=== PATIENT | female | born 1985 | race Caucasian/White ===

== ENCOUNTER → 2022-08-12 14:10 | Outpatient (BNVA) | payer OTHER, SELFPAY | PROVIDERS: Visit Provider Family Medicine | DX: Z98.84 Bariatric surgery status (principal) | CPT/HCPCS: 80053; 82607; 84134; 84443; 85025 ==

== ENCOUNTER → 2022-10-03 08:16 | Outpatient (BNVA) | payer OTHER, SELFPAY | PROVIDERS: PCP Family Medicine; Visit Provider Clinical Nurse Specialist Adult Health | DX: R53.83 Other fatigue (principal); R68.83 Chills (without fever); Z98.84 Bariatric surgery status | CPT/HCPCS: 80053; 82607; 84436; 84443; 84481 ==

== ENCOUNTER → 2022-11-06 12:27 | Outpatient (BNVA) | payer OTHER, SELFPAY | PROVIDERS: PCP Family Medicine; Visit Provider Family Medicine | DX: E16.2 Hypoglycemia, unspecified (principal); R55 Syncope and collapse | CPT/HCPCS: 80053; 81000; 83036; 83735; 85025 ==

== ENCOUNTER 2023-01-23 09:36 | Outpatient (CLI) | payer OTHER, SELFPAY ==
--- NOTE | 2023-01-23 09:52 | US_ITS ---
WS: [id number] RIGHT UPPER QUADRANT ULTRASOUND HISTORY: ACUTE RUQ PAIN COMPARISON: None available. Liver: 15.0 cm in length. Normal size liver. No bile duct dilatation or mass. Portal Vein: Normal hepatopetal flow with monophasic waveform. Gallbladder: Normally distended gallbladder with no stones or wall thickening. CBD: 0.2 cm Pancreas: Completely obscured by bowel gas. Right kidney: 10.1 cm in length. Normal size and echogenicity. No hydronephrosis or mass. Aorta and IVC: Unremarkable abdominal aorta and IVC. No ascites. US/US gall bladder [id number] IMPRESSION: 1. Normal gallbladder. 2. Pancreas is completely obscured by bowel gas. 3. No bile duct dilatation.
== END 2023-01-23 09:37 | disposition home or self-care (01) ==
PROVIDERS: PCP Family Medicine; Visit Provider Family Medicine
DX: R10.11 Right upper quadrant pain (principal)
CPT/HCPCS: 76705

== ENCOUNTER 2023-03-27 07:04 | Outpatient (CLI) | payer OTHER, SELFPAY ==
[2023-03-27 08:03] LABS: Cortisol Random 13.27 ug/dL (2.47-19.5)
== END 2023-03-27 07:05 | disposition home or self-care (01) ==
LOC: LAB 07:07
PROVIDERS: PCP Family Medicine; Visit Provider Internal Medicine
DX: E16.2 Hypoglycemia, unspecified (principal)
CPT/HCPCS: 36415; 82533

== ENCOUNTER 2023-09-03 13:26 | Outpatient (CLI) | payer OTHER, SELFPAY ==
--- NOTE | 2023-09-03 13:31 | MM_ITS ---
WS: [id number] BILATERAL 3D TOMOSYNTHESIS DIGITAL SCREENING MAMMOGRAPHY WITH CAD CLINICAL INFORMATION: SCREENING HISTORY: Screening mammogram. No current complaints. COMPARISON: Baseline TECHNIQUE: Bilateral CC and MLO views. FINDINGS: The breasts are composed of heterogeneous fibroglandular density tissue, which can limit the detectio n of small underlying mass lesions. No suspicious mass, asymmetry, calcifications, or architectural d istortion. No evidence of malignancy. Incidental punctate calcification RIGHT breast. IMPRESSION: MM/[place] [id number] BI-RADS: 2-Benign FOLLOW UP: 1 Year Follow-up Recommend return to annual screening mammography.
== END 2023-09-03 13:27 | disposition home or self-care (01) ==
PROVIDERS: PCP Family Medicine; Visit Provider Family Medicine
DX: Z12.31 Encounter for screening mammogram for malignant neoplasm of breast (principal)
CPT/HCPCS: 77063; 77067

== ENCOUNTER 2023-09-10 10:44 | Emergency (ER) | payer OTHER, SELFPAY ==
[2023-09-10 10:51] VITALS: BP 121/69; PULSE 108; RESP 18; TEMP 36.8; O2SAT 100; BMI 29.2
--- NOTE | 2023-09-10 11:03 | W.ED.ANXIETY ---
HPI - Anxiety General: Chief Complaint: Anxiety Stated Complaint: shaking/severe body aches Time Seen by Provider: 09/10/23 10:57 History of Present Illness: 38-year-old female presents with body aches and shaking. Patient reports that she ingested up home when she started having significant amount of shaking. She reports that she feels like maybe she had a urinary tract infection last couple days but no other symptoms. Patient reports that she feels like she just cannot quit shaking. No nausea, vomiting or other systemic complaints. Associated symptoms: Reports chills; Deny chest pain, headache(s) or palpitations Review of Systems Const: Reports: chills and body aches Card: Denies: chest pain or palpitations Resp: Reports: dyspnea GI: Reports: abdominal pain (suprapubic) : Reports: dysuria and urinary frequency Skin/Breast: Denies: rash or pruritus Neuro: Denies: headache(s) or numbness in extremities Psych: Reports: anxiety PFSH ED PFSH: Medical History Depression, major, recurrent, in partial remission Generalized anxiety disorder Genital herpes History of abnormal cervical Pap smear neg colpo Intracranial hypertension Surgical History History of nasal septoplasty 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 History of tonsillectomy History of wisdom tooth extraction Family History Unknown Adopted Social History Smoking and tobacco/nicotine status: never used tobacco/nicotine Alcohol intake: never Substance/Drug Use: never Adopted: Yes Household members: children Marital status: Number of children: 1 Current occupational status: employed 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 [place] Physical Exam Const: COMMON NORMALS: patient oriented x3 GENERAL APPEARANCE: anxious and other (shaking ) Chest: CHEST: No abnormal inspection of the chest Resp: COMMON NORMALS: normal respiratory effort, No retractions and No use of accessory muscles Cardio: COMMON NORMALS: regular rhythm RATE: tachycardic RHYTHM: regular rhythm GI: COMMON NORMALS: Normal to inspection, nondistended, normoactive bowel sounds present and Soft to palpation PALPATION: Yes Soft to palpation Extremity: COMMON NORMALS: full ROM and capillary refill normal Neuro: COMMON NORMALS: patient oriented x3, no focal motor deficits and no sensory deficits noted Psych: COMMON NORMALS: mental status grossly normal Skin: COMMON NORMALS: no rashes or lesions noted and turgor normal GENERAL SKIN EXAM: no rashes or lesions noted and turgor normal Course Vital Signs: Vital signs: Vital Signs Temperature 98.2 F 09/10/23 13:21 Pulse Rate 108 H 09/10/23 13:21 Respiratory Rate 18 09/10/23 13:21 Blood Pressure 121/69 09/10/23 13:21 Pulse Oximetry 100 09/10/23 13:21 Oxygen Delivery Me thod Room Air 09/10/23 10:51 MDM - Anxiety Medical Decision Making Patient's diagnostic studies were ordered and reviewed and interpreted by me. Patient has slight elevation of her CRP. Patient urine is also consistent with a likely urinary tract infection based on her symptoms over the last couple days. I will start her on Bactrim for UTI. Patient may also have a viral syndrome as she has exposure through school system. Also suspect that there was some mild anxiety reaction. Patient should follow with her primary care provider next week for recheck of her symptoms. She is stable and discharged home. Medical Records I reviewed the patient's medical records. Lab Data I reviewed the patient's lab results. 09/10/23 11:08 09/10/23 11:08 Laboratory Results WBC 9.53 10^3/uL (3.29-11.43) 09/10/23 11:08 RBC 5.08 10^6/uL (3.85-5.65) 09/10/23 11:08 Hgb 14.60 g/dL (11.27-16.99) 09/10/23 11:08 Hct 45.1 % (36-47) 09/10/23 11:08 MCV 88.8 fl (85-98) 09/10/23 11:08 MCH 28.7 pg (27-33) 09/10/23 11:08 MCHC 32.4 g/dL (30-55) 09/10/23 11:08 RDW 12.6 % (12.1-15.1) 09/10/23 11:08 Plt Count 210 10^3/cmm (157-399) 09/10/23 11:08 MPV 10.5 fL (7.4-10.4) H 09/10/23 11:08 Neut % (Auto) 89.1 % 09/10/23 11:08 Lymph % (Auto) 8.8 % 09/10/23 11:08 Randall % (Auto) 1.0 % 09/10/23 11:08 Eos % (Auto) 0.4 % 09/10/23 11:08 Baso % (Auto) 0.4 % 09/10/23 11:08 Neut # (Auto) 8.48 10^3/uL (1.8-7.7) H 09/10/23 11:08 Lymph # (Auto) 0.8 10^3/uL (0.8-4.8) 09/10/23 11:08 Randall # (Auto) 0.1 10^3/uL (0.2-0.9) L 09/10/23 11:08 Eos # (Auto) 0.0 10^3/uL (0.0-0.8) 09/10/23 11:08 Baso # (Auto) 0.0 10^3/uL (0.0-0.1) 09/10/23 11:08 Nucleated RBC % (auto) 0 % 09/10/23 11:08 Nucleated RBCs # 0.0 /100WBC 09/10/23 11:08 Sodium 138 mmol/L (136-145) 09/10/23 11:08 Potassium 4.4 mmol/L (3.5-5.1) 09/10/23 11:08 Chloride 103 mmol/L (98-107) 09/10/23 11:08 Carbon Dioxide 21 mmol/L (22-29) L 09/10/23 11:08 Anion Gap 18.4 (5-19) 09/10/23 11:08 BUN 14 mg/dL (6-20) 09/10/23 11:08 Creatinine 0.9 mg/dL (0.5-0.9) 09/10/23 11:08 GFR Calculation 69.3 mL/min (90-130) L 09/10/23 11:08 Glucose 101 mg/dL (65-115) 09/10/23 11:08 Calculated Osmolality 287 mOsm/kg (285-295) 09/10/23 11:08 Calcium 9.2 mg/dL (8.5-10.5) 09/10/23 11:08 Total Bilirubin 0.4 mg/dL (0.15-1.2) 09/10/23 11:08 AST 19 U/L (0-32) 09/10/23 11:08 ALT 24 U/L (0-33) 09/10/23 11:08 Alkaline Phosphatase 95 U/L (35-105) 09/10/23 11:08 C-Reactive Protein 13.7 mg/L (0.0-4.9) H 09/10/23 11:08 Total Protein 7.5 g/dL (6.6-8.7) 09/10/23 11:08 Albumin 4.4 g/dL (3.5-5.2) 09/10/23 11:08 Globulin 3.1 g/dL (1.3-4.6) 09/10/23 11:08 HCG, Qual Negative (Negative) 09/10/23 11:38 Urine Color Yellow (Yellow) 09/10/23 11:38 Urine Appearance Cloudy (CLEAR) A 09/10/23 11:38 Urine pH 8 (5-7) H 09/10/23 11:38 Ur Specific Pine 1.010 (1.005-1.030) 09/10/23 11:38 Urine Protein Neg (Negative) 09/10/23 11:38 Urine Glucose (UA) Norm (Normal) 09/10/23 11:38 Urine Ketones 1+ (Negative) H 09/10/23 11:38 Urine Blood 3+ (Negative) H 09/10/23 11:38 Urine Nitrate Negative (Negative) 09/10/23 11:38 Urine Bilirubin Neg (Negative) 09/10/23 11:38 Prot Sulfosalicylic Acd Negative (Negative) 09/10/23 11:38 Urine Urobilinogen Norm mg/dL (Negative) 09/10/23 11:38 Ur Leukocyte Esterase 2+ (Negative) H 09/10/23 11:38 Urine RBC 15-25 /hpf (0-2) H 09/10/23 11:38 Urine WBC 80-100 /hpf (0-5) H 09/10/23 11:38 Ur Squamous Epith Cells 5-10 /hpf (0-5) H 09/10/23 11:38 Amorphous Sediment Not Reportable 09/10/23 11:38 Urine Bacteria 2+ /hpf (NONE) H 09/10/23 11:38 Urine Mucus Trace /hpf 09/10/23 11:38 Coronavirus 229E (PCR) Not detected (NOT DETECT) 09/10/23 11:38 SARS-CoV-2 (PCR) Not detected (NOT DETECT) 09/10/23 11:38 No radiology studies performed this visit Discharge Plan Discharge Patient Disposition: Home Clinical Impression: Acute cystitis with hematuria, Generalized anxiety disorder, Viral syndrome Condition: Stable Prescriptions: New Bactrim DS 800-160 mg tablet 1 tab PO BID 5 Days Qty: 10 0RF No Action pantoprazole 20 mg tablet,delayed release (DR/EC) 20 mg PO DAILY glucose [Dex4 Glucose] 4 gram tablet,chewable 4 g PO Q15M PRN (Reason: hypoglycemia) Qty: 30 0RF Rx Instructions: until symptoms of low blood sugar are controlled (DME) FreeStyle Nasima 3 Sensor Device See Rx Instructions .Route Qty: 9 2RF Rx Instructions: Change every 14 days acarbose 25 mg tablet 25 mg PO TID 60 Days Qty: 180 1RF Rx Instructions: With the 3 meals (DME) FreeStyle Nasima 3 Sensor Kit See Rx Instructions .Route Qty: 6 1RF Rx Instructions: As directed escitalopram oxalate 20 mg tablet 20 mg PO DAILY Qty: 90 1RF valacyclovir 1 gram tablet 1,000 mg PO DAILY Qty: 90 1RF biotin 5 mg Capsule 5 mg PO DAILY Azo Cranberry 250 mg Tablet,Chewable 250 mg PO TID vitamin C39-orlov acid 2,500-400 mcg Tablet,Disintegrating 1 tab PO DAILY Discharge Orders: Discharge ED (Routine); Ordered 09/10/23 Ordered By: Liu Rodgers Referrals: Cristóbal Jack MD [Primary Care Provider] - Discharge Diet: Usual diet Discharge Activity: Resume usual activity Patient Instructions: Urinary Tract Infection in Women (DC), Opioid Safety, Pain Management, Viral Syndrome - Adult Activity Restrictions/Additional Instructions: Tylenol ibuprofen as needed for discomfort, fever or chills. Please follow-up with your primary care provider next week for recheck of your symptoms. Coding Level of Care Code ED Web Press Roll Tender for Heidi Leal
[2023-09-10 11:15] LABS: Basophils % 0.4 %; Eosinophils % 0.4 %; Hematocrit 45.1 % (36-47); Lymphocytes # 0.8 10^3/uL (0.8-4.8); Lymphocytes % 8.8 %; Mean Corpuscular HGB Conc 32.4 g/dL (30-55); Mean Corpuscular Hemoglobin 28.7 pg (27-33); Mean Corpuscular Volume 88.8 fl (85-98); Mean Platelet Volume 10.5 fL (7.4-10.4); Monocytes # 0.1 10^3/uL (0.2-0.9); Neutrophils # 8.48 10^3/uL (1.8-7.7); Neutrophils % 89.1 %; Nucleated Red Blood Cells % 0 %; Platelet Count 210 10^3/cmm (157-399); Red Blood Count 5.08 10^6/uL (3.85-5.65); Red Cell Distribution Width 12.6 % (12.1-15.1); White Blood Count 9.53 10^3/uL (3.29-11.43)
[2023-09-10] MEDS: acetaminophen 325 mg Tablet 650 MG PO (11:26)
[2023-09-10] MEDS: hyDROXYzine 25 mg Capsule PO (11:26)
[2023-09-10 11:40] LABS: Alanine Aminotransferase 24 U/L (0-33); Albumin Level 4.4 g/dL (3.5-5.2); Alkaline Phosphatase 95 U/L (35-105); Anion Gap 18.4 (5-19); Aspartate Amino Transferase 19 U/L (0-32); Blood Urea Nitrogen 14 mg/dL (6-20); C Reactive Protein 13.7 mg/L (0.0-4.9); Calcium 9.2 mg/dL (8.5-10.5); Carbon Dioxide 21 mmol/L (22-29); Chloride 103 mmol/L (98-107); Globulin 3.1 g/dL (1.3-4.6); Glomerular Filtration Rate 69.3 mL/min (90-130); Glucose 101 mg/dL (65-115); Osmolality Calculated 287 mOsm/kg (285-295); Potassium 4.4 mmol/L (3.5-5.1); Sodium 138 mmol/L (136-145); Total Bilirubin 0.4 mg/dL (0.15-1.2); Total Protein 7.5 g/dL (6.6-8.7)
[2023-09-10 12:03] LABS: HCG Qualitative Urine. Negative (Negative); Urine Appearance Cloudy (CLEAR); Urine Color Yellow (Yellow)
[2023-09-10 12:04] LABS: Add Urine Microscopic? YES; Bilirubin Urine Neg (Negative); Blood Urine 3+ (Negative); Glucose Urine UA Norm (Normal); Ketones Urine 1+ (Negative); Leukocyte Esterase Urine 2+ (Negative); Nitrate Urine Negative (Negative); Protein Urine Neg (Negative); Sulfosalicylic Acid Urine Negative (Negative); Urobilinogen Urine Norm (Negative); pH Urine 8 (5-7)
[2023-09-10 12:08] LABS: RBC Urine 15-25 /hpf (0-2); WBC Urine 80-100 /hpf (0-5)
[2023-09-10 12:09] LABS: Add Urine Culture? Yes; Bacteria Urine 2+ /hpf; Mucus Urine TRACE /hpf
[2023-09-10 13:21] VITALS: BP 121/69; PULSE 108; RESP 18; TEMP 36.8; O2SAT 100
[2023-09-10 13:25] LABS: Adenovirus Not Detected (NOT DETECT); Chlamydia Pneumoniae Not Detected (NOT DETECT); Coronavirus 229E,HKU1,NL63,OC4 Not Detected (NOT DETECT); Human Metapneumovirus Not Detected (NOT DETECT); Human Rhinovirus/Enterovirus Not Detected (NOT DETECT); Influenza A Not Detected (NOT DETECT); Influenza A H1 Not Detected (NOT DETECT); Influenza A H1-2009 Not Detected (NOT DETECT); Influenza A H3 Not Detected (NOT DETECT); Influenza B Not Detected (NOT DETECT); Mycoplasma Pneumoniae Not Detected (NOT DETECT); Parainfluenza Virus Type 1 Not Detected (NOT DETECT); Parainfluenza Virus Type 2 Not Detected (NOT DETECT); Parainfluenza Virus Type 3 Not Detected (NOT DETECT); Parainfluenza Virus Type 4 Not Detected (NOT DETECT); Respiratory Syncytial Virus A Not Detected (NOT DETECT); Respiratory Syncytial Virus B Not Detected (NOT DETECT); SARS-COV-2 Not Detected (NOT DETECT)
== END 2023-09-10 13:22 | disposition home or self-care (01) ==
PROVIDERS: Emergency Provider Student in an Organized Health Care Education/Training Program; PCP Family Medicine
DX: N30.01 Acute cystitis with hematuria (principal); F41.1 Generalized anxiety disorder; B34.9 Viral infection, unspecified; Z11.52 Encounter for screening for COVID-19
CPT/HCPCS: 36415; 80053; 81001; 81025; 85025; 86140; 87077; 87086; 87186; 87635; 99283

== ENCOUNTER → 2024-05-04 14:07 | Outpatient (BNVA) | payer OTHER, SELFPAY | PROVIDERS: PCP Family Medicine; Referring Provider Family Medicine; Visit Provider Physician Assistant | DX: M25.552 Pain in left hip; M70.62 Trochanteric bursitis, left hip | CPT/HCPCS: 73502 ==